=== PATIENT | female | born 1990 | race Caucasian/White ===

== ENCOUNTER 2017-02-24 16:17 | Outpatient (CLI) | payer OTHER ==
[2017-02-24 17:16] LABS: APPEARANCE,URINE SLIGHTLY-CLOUDY; BILIRUBIN,URINE NEGATIVE (NEGATIVE); GLUCOSE, URINE NEGATIVE (NEGATIVE); KETONES,URINE NEGATIVE (NEGATIVE); LEUKOCYTE ESTERASE,URINE LARGE (NEGATIVE); NITRITE,URINE NEGATIVE (NEGATIVE); PROTEIN,URINE NEGATIVE (NEGATIVE); URINE BARBITURATES SCREEN NEGATIVE; URINE METHADONE SCREEN NEGATIVE; URINE OPIATES LOW NEGATIVE; URINE PHENCYCLIDINE SCREEN NEGATIVE; URINE SPECIFIC GRAVITY 1.009; UROBILINOGEN,URINE NEGATIVE mg/dL (<2.0)
[2017-02-24 17:19] LABS: URINE CREATININE 80.4 mg/dL (16-327); URINE PROTEIN 9.9 mg/dL (<12)
[2017-02-24 18:05] LABS: ABSOLUTE LYMPHOCYTES (AUTO) 1.8 10^3/uL (0.5-4.7); ABSOLUTE MONOCYTES (AUTO) 1.1 10^3/uL (0.1-1.4); ABSOLUTE NEUT (AUTO) 6.5 10^3/uL (1.7-8.2); BASOPHILS % (AUTO) 0.4 % (0-2); EOSINOPHILS % (AUTO) 0.5 % (0-6); HEMATOCRIT 33.2 % (36.0-47.0); HEMOGLOBIN 11.4 g/dL (12.0-15.5); LYMPHOCYTES % (AUTO) 18.8 % (13-45); MEAN CORPUSCULAR HEMOGLOBIN 30.8 pg (27.0-33.4); MEAN CORPUSCULAR HGB CONC 34.5 g/dL (32.0-36.0); MEAN CORPUSCULAR VOLUME 89 fl (80-97); RED BLOOD COUNT 3.71 10^6/uL (3.72-5.28); SEGMENTED NEUTROPHILS % (AUTO) 68.3 % (42-78); WHITE BLOOD COUNT 9.5 10^3/uL (4.0-10.5)
[2017-02-24 18:30] LABS: ALANINE AMINOTRANSFERASE 35 U/L (9-52); ALBUMIN 3.4 g/dL (3.5-5.0); ALKALINE PHOSPHATASE 132 U/L (38-126); ANION GAP 11 (5-19); ASPARTATE AMINO TRANSFERASE 23 U/L (14-36); BILIRUBIN,DIRECT 0.3 mg/dL (0.0-0.4); BILIRUBIN,TOTAL 0.4 mg/dL (0.2-1.3); BLOOD UREA NITROGEN 14 mg/dL (7-20); CALCIUM 9.1 mg/dL (8.4-10.2); CARBON DIOXIDE 21 mmol/L (22-30); CHLORIDE 107 mmol/L (98-107); CREATININE RESULT 0.83 mg/dL (0.52-1.25); GLUCOSE 71 mg/dL (75-110); LDH 485 U/L (313-618); POTASSIUM 4.1 mmol/L (3.6-5.0); SODIUM 138.5 mmol/L (137-145); TOTAL PROTEIN 5.7 g/dL (6.3-8.2); URIC ACID 3.9 mg/dL (2.5-6.2)
== END 2017-02-24 19:57 | disposition home or self-care (01) ==
LOC: LC 16:17
PROVIDERS: ATTEND Student in an Organized Health Care Education/Training Program
DX: O13.3 Gestational [pregnancy-induced] hypertension without significant proteinuria, third trimester (principal); Z3A.39 39 weeks gestation of pregnancy
CPT/HCPCS: 36415; 59025; 80053; 80307; 81001; 82570; 83615; 84156; 84550; 85025

== ENCOUNTER 2017-02-26 17:07 | Outpatient (CLI) | payer OTHER ==
[2017-02-26 17:28] LABS: ABSOLUTE EOSINOPHILS # (AUTO) 0.1 10^3/uL (0.0-0.6); ABSOLUTE LYMPHOCYTES (AUTO) 1.5 10^3/uL (0.5-4.7); ABSOLUTE MONOCYTES (AUTO) 0.8 10^3/uL (0.1-1.4); ABSOLUTE NEUT (AUTO) 6.3 10^3/uL (1.7-8.2); BASOPHILS % (AUTO) 0.5 % (0-2); EOSINOPHILS % (AUTO) 0.6 % (0-6); HEMATOCRIT 32.8 % (36.0-47.0); HEMOGLOBIN 11.5 g/dL (12.0-15.5); HGB HCT DIFFERENCE 1.7; LYMPHOCYTES % (AUTO) 16.9 % (13-45); MEAN CORPUSCULAR HEMOGLOBIN 31.5 pg (27.0-33.4); MEAN CORPUSCULAR VOLUME 90 fl (80-97); MONOCYTES % (AUTO) 9.4 % (3-13); RED BLOOD COUNT 3.65 10^6/uL (3.72-5.28); RED CELL DISTRIBUTION WIDTH 13.3 % (11.5-14.0); SEGMENTED NEUTROPHILS % (AUTO) 72.6 % (42-78); WHITE BLOOD COUNT 8.7 10^3/uL (4.0-10.5)
--- NOTE | 2017-02-26 17:52 | Non Stress Test Report ---
Non Stress Test Datetime Report Generated by CPN: 02/26/2017 17:52 DEMOGRAPHIC Test Number: 1 EGA NST: 39.4 EGA NST: 39.2 INDICATION Indication for Study: Ordered by Provider Indication for Study: Ordered by Provider Indication for Study: Ordered by Provider Indication for Study (NST) Other: pih work up Indication for Study (NST) Other: PRE-E W/U VITAL SIGNS Temperature - NST: 98.9 Temperature - NST: 99.6 Pulse - NST: 96 RESP - NST: 18 NBPSYS NST: 128 NBPDIA NST: 83 MONITORING Monitor Explained: Monitor Explained; Test Explained; Patient Verbalized Understanding Monitor Explained: Monitor Explained; Test Explained; Patient Verbalized Understanding Monitor Explained: Monitor Explained; Test Explained; Patient Verbalized Understanding Time on Monitor: 02/26/2017 17:16 Time on Monitor: 02/24/2017 16:30 Time on Monitor: 02/24/2017 16:32 Time off Monitor: 02/26/2017 17:42 Time off Monitor: 02/24/2017 16:56 Time off Monitor: 02/24/2017 17:01 NST Duration: 26 NST Duration: 26 NST Duration: 29 NST INTERVENTIONS NST Interventions: PO Hydration NST Interventions: PO Hydration NST Interventions: PO Hydration; Reposition Patient NST Interventions: PO Hydration; Reposition Patient Physician Notified NST: Kaylin Physician Notified NST: Dr Aguirre Physician Notified NST: DR AGUIRRE REVIEWED STRIP BABY A: [id number] BABY A Movement : Present Movement : Present Movement : Present Contraction Frequency : 9-11 Contraction Frequency : x1 Contraction Frequency : x1 FHR Baseline : 125 FHR Baseline : 125 FHR Baseline : 125 (Annotations: Data stored by N on behalf of user) Accelerations : 15X15 Accelerations : 15X15 Accelerations : 15X15 Decelerations : None Decelerations : None Decelerations : None Variability : Moderate 6-25bpm Variability : Moderate 6-25bpm Variability : Moderate 6-25bpm NST Review: Meets Criteria for Reactive NST NST Review: Meets Criteria for Reactive NST NST Review: Meets Criteria for Reactive NST NST Review and Verified By : Harvinder Watkins RN NST Review and Verified By : Ana Cristina ELAM NST Results: Reactive NST Results: Reactive NST Results: Reactive NST REPORT Report Trigger: Send Report
[2017-02-26 18:11] LABS: URINE CREATININE 50.4 mg/dL (16-327)
== END 2017-02-26 17:48 | disposition home or self-care (01) ==
LOC: LC 17:07
PROVIDERS: ATTEND Obstetrics & Gynecology
PROC: 4A1HXCZ Monitoring of Products of Conception, Cardiac Rate, External Approach (ICD-10-PCS; principal; 2017-02-26)
DX: O14.93 Unspecified pre-eclampsia, third trimester (principal); Z3A.39 39 weeks gestation of pregnancy
CPT/HCPCS: 36415; 59025; 82570; 84156; 85025

== ENCOUNTER 2017-03-03 12:32 | Inpatient (IN) | payer OTHER ==
[2017-03-03 12:56] LABS: APPEARANCE,URINE SLIGHTLY-CLOUDY; BILIRUBIN,URINE NEGATIVE (NEGATIVE); GLUCOSE, URINE NEGATIVE (NEGATIVE); KETONES,URINE NEGATIVE (NEGATIVE); LEUKOCYTE ESTERASE,URINE LARGE (NEGATIVE); NITRITE,URINE NEGATIVE (NEGATIVE); PROTEIN,URINE NEGATIVE (NEGATIVE); URINE SPECIFIC GRAVITY 1.002; UROBILINOGEN,URINE NEGATIVE mg/dL (<2.0)
[2017-03-03 13:16] LABS: URINE CREATININE 28.4 mg/dL (16-327); URINE PROTEIN 16.3 mg/dL (<12)
[2017-03-03 13:34] LABS: URINE BARBITURATES SCREEN NEGATIVE; URINE METHADONE SCREEN NEGATIVE; URINE OPIATES LOW NEGATIVE; URINE PHENCYCLIDINE SCREEN NEGATIVE
[2017-03-03 13:48] LABS: ABSOLUTE LYMPHOCYTES (AUTO) 1.1 10^3/uL (0.5-4.7); ABSOLUTE MONOCYTES (AUTO) 0.6 10^3/uL (0.1-1.4); ABSOLUTE NEUT (AUTO) 6.1 10^3/uL (1.7-8.2); BASOPHILS % (AUTO) 0.2 % (0-2); EOSINOPHILS % (AUTO) 0.2 % (0-6); HEMATOCRIT 34.2 % (36.0-47.0); HEMOGLOBIN 11.9 g/dL (12.0-15.5); HGB HCT DIFFERENCE 1.5; LYMPHOCYTES % (AUTO) 14.1 % (13-45); MEAN CORPUSCULAR HEMOGLOBIN 30.9 pg (27.0-33.4); MEAN CORPUSCULAR HGB CONC 34.8 g/dL (32.0-36.0); MEAN CORPUSCULAR VOLUME 89 fl (80-97); MONOCYTES % (AUTO) 7.4 % (3-13); RED BLOOD COUNT 3.85 10^6/uL (3.72-5.28); SEGMENTED NEUTROPHILS % (AUTO) 78.1 % (42-78); WHITE BLOOD COUNT 7.8 10^3/uL (4.0-10.5)
[2017-03-03 14:17] LABS: ALANINE AMINOTRANSFERASE 35 U/L (9-52); ALBUMIN 3.2 g/dL (3.5-5.0); ALKALINE PHOSPHATASE 154 U/L (38-126); ANION GAP 10 (5-19); ASPARTATE AMINO TRANSFERASE 23 U/L (14-36); BILIRUBIN,DIRECT 0.2 mg/dL (0.0-0.4); BILIRUBIN,TOTAL 0.2 mg/dL (0.2-1.3); BLOOD UREA NITROGEN 7 mg/dL (7-20); CALCIUM 8.8 mg/dL (8.4-10.2); CARBON DIOXIDE 20 mmol/L (22-30); CHLORIDE 108 mmol/L (98-107); CREATININE RESULT 0.72 mg/dL (0.52-1.25); GLUCOSE 93 mg/dL (75-110); LDH 463 U/L (313-618); POTASSIUM 3.5 mmol/L (3.6-5.0); TOTAL PROTEIN 5.3 g/dL (6.3-8.2); URIC ACID 3.6 mg/dL (2.5-6.2)
[2017-03-03] MEDS ORDERED: MISOPROSTOL 0.1 MG TABLET ONE (15:11)
[2017-03-03] MEDS ORDERED: RINGERS SOLUTION,LACTATED 300 ML IV ONE (15:14)
[2017-03-03] MEDS ORDERED: DINOPROSTONE 10 MG VAGINAL INSERT.SR PV PRN (15:14)
[2017-03-03] MEDS ORDERED: MISOPROSTOL 0.1 MG TABLET PV SCH (15:15)
[2017-03-03] MEDS ORDERED: PENICILLIN G-K 5 MILLION UNIT VIAL ONE ×3 (15:20→23:06)
[2017-03-03] MEDS ORDERED: PENICILLIN G POTASSIUM 5,000,000 UNIT in DEXTROSE 5%-WATER 100 ML IV ONE (15:27)
[2017-03-03] MEDS: PENICILLIN G POTASSIUM 2,500,000 UNIT in DEXTROSE 5%-WATER 50 ML IV SCH ×2 (19:26→23:13)
[2017-03-03] MEDS: RINGERS SOLUTION,LACTATED 1,000 ML IV PRN (23:18)
[2017-03-04] MEDS ORDERED: NALBUPHINE HCL INJ 10 MG/1 ML AMPULE INJ ONE (00:25)
[2017-03-04] MEDS ORDERED: NALBUPHINE HCL INJ 10 MG/1 ML AMPULE ONE (00:25)
[2017-03-04 00:27] LABS: ABSOLUTE EOSINOPHILS # (AUTO) 0.1 10^3/uL (0.0-0.6); ABSOLUTE LYMPHOCYTES (AUTO) 2.2 10^3/uL (0.5-4.7); ABSOLUTE NEUT (AUTO) 8.4 10^3/uL (1.7-8.2); BASOPHILS % (AUTO) 0.4 % (0-2); EOSINOPHILS % (AUTO) 0.4 % (0-6); HEMATOCRIT 33.6 % (36.0-47.0); HEMOGLOBIN 11.7 g/dL (12.0-15.5); HGB HCT DIFFERENCE 1.5; LYMPHOCYTES % (AUTO) 18.6 % (13-45); MEAN CORPUSCULAR HEMOGLOBIN 30.8 pg (27.0-33.4); MEAN CORPUSCULAR HGB CONC 34.8 g/dL (32.0-36.0); MEAN CORPUSCULAR VOLUME 89 fl (80-97); MONOCYTES % (AUTO) 8.7 % (3-13); RED CELL DISTRIBUTION WIDTH 13.3 % (11.5-14.0); SEGMENTED NEUTROPHILS % (AUTO) 71.9 % (42-78); WHITE BLOOD COUNT 11.7 10^3/uL (4.0-10.5)
[2017-03-04] MEDS: RINGERS SOLUTION,LACTATED 1,000 ML IV PRN ×2 (00:42→19:22)
[2017-03-04 00:45] LABS: ALANINE AMINOTRANSFERASE 35 U/L (9-52); ALBUMIN 3.1 g/dL (3.5-5.0); ALKALINE PHOSPHATASE 144 U/L (38-126); ANION GAP 7 (5-19); ASPARTATE AMINO TRANSFERASE 22 U/L (14-36); BILIRUBIN,DIRECT 0.3 mg/dL (0.0-0.4); BILIRUBIN,TOTAL 0.4 mg/dL (0.2-1.3); BLOOD UREA NITROGEN 9 mg/dL (7-20); CARBON DIOXIDE 21 mmol/L (22-30); CHLORIDE 108 mmol/L (98-107); CREATININE RESULT 0.72 mg/dL (0.52-1.25); GLUCOSE 82 mg/dL (75-110); LDH 440 U/L (313-618); POTASSIUM 4.2 mmol/L (3.6-5.0); TOTAL PROTEIN 5.4 g/dL (6.3-8.2); URIC ACID 3.2 mg/dL (2.5-6.2)
[2017-03-04] MEDS ORDERED: OXYTOCIN/NORMAL SALINE 20 UNIT/1,000 ML RTUINJ IV PRN ×2 (00:45→19:58)
--- NOTE | 2017-03-04 01:24 | L&D Progress Notes ---
PROGRESS NOTES Datetime Report Generated by CPN: 03/04/2017 01:24 PROGRESS NOTE Impression: Normal Progression of Labor; Reassuring Heart Rate Procedures: Sterile Vag Exam Plan: Continue Present Management; Induction; Cervical Ripening Informed Consent Obtained: Vaginal Delivery; Induction of Labor; Risks, Benefits and Alternatives Discussed Vital Signs : Reviewed; Within Normal Limits Comment: Now 1cm/50/-3 after cytotec per vagina times 2. Cooks catheter placed. Pitocin initiated. Continue IOL for PreE. Labs stable and platlets stable. Reassuring FWB. Anticipate . VAGINAL EXAM Dilatation: 1 Dilatation: 0 Effacement: 50 Effacement: 0 Station: -3 Station: -2 Contractions: irreg Contractions: rare MEMBRANES Membranes: Intact FETUS A FHR - Baseline: 125 Monitoring: External US Variability: Moderate 6-25bpm Accelerations: 15X15 Decelerations: None FHR Category: Category I Presentation: Vertex SIGNATURE SIGNATURE: [id number];[id number] SIGNATURE: [id number] Signature: with User ID: [email or web address]
[2017-03-04] MEDS ORDERED: OXYTOCIN/NORMAL SALINE 0 UNIT/0 ML RTUINJ ONE (01:30)
[2017-03-04] MEDS ORDERED: FENTANYL/BUPIVACAINE/NS/PF 0 MCG/0 ML RTUINJ EPI ONE (01:54)
[2017-03-04] MEDS ORDERED: BUPIVACAINE HCL 0.25 % INJ/PF (2.5 MG/1 ML) 30 ML VIAL ONE ×2 (01:54→19:42)
[2017-03-04] MEDS ORDERED: EPHEDRINE SULFATE INJ 50 MG/1 ML AMPULE ONE ×2 (01:54→20:06)
[2017-03-04] MEDS ORDERED: PENICILLIN G-K 5 MILLION UNIT VIAL ONE ×5 (03:40→19:13)
[2017-03-04] MEDS ORDERED: MISOPROSTOL 0.2 MG TABLET ONE (03:41)
[2017-03-04] MEDS ORDERED: OXYTOCIN/NORMAL SALINE 20 UNIT/1,000 ML RTUINJ ONE ×2 (03:41→20:06)
[2017-03-04] MEDS ORDERED: LIDOCAINE 1% INJ-PF (10 MG/ML) 30 ML SDV ONE (03:41)
[2017-03-04] MEDS: PENICILLIN G POTASSIUM 2,500,000 UNIT in DEXTROSE 5%-WATER 50 ML IV SCH ×5 (03:56→19:21)
--- NOTE | 2017-03-04 09:58 | L&D Progress Notes ---
PROGRESS NOTES Datetime Report Generated by CPN: 03/04/2017 09:58 PROGRESS NOTE Impression: Normal Progression of Labor Impression Other: IOL for preeclampsia at term Procedures: Artificial ROM Procedures- Other: AROM for moderate amount clear fluid Plan: Continue Present Management Vital Signs : Reviewed; Within Normal Limits Comment: IOL for preeclampsia without severe features. currently denies SMITH/visual changes/RUQ pain. BP normal to mild range. pitocin at 10mu/min. contractions adequate. cook catheter in vagina, removed. AROM for clear fluid. continue pitocin IOL, anticipate VAGINAL EXAM Dilatation: 5 Effacement: 80 Station: -2 Contractions: Q2-3.5 mins MEMBRANES Membranes: Ruptured FETUS A FHR - Baseline: 140 Monitoring: External US Variability: Moderate 6-25bpm Accelerations: 15X15 Decelerations: None FHR Category: Category I FHR Comments: vtx Estimated Weight (gm): 3700 FETUS C SIGNATURE: [id number];[id number] Assignment: Halle Salgado MD Signature: with User ID: [email or web address] : with User ID: [email or web address]
[2017-03-04] MEDS ORDERED: FENTANYL/BUPIVACAINE/NS/PF 200 MCG/100 ML RTUINJ EPI ONE ×2 (11:06→19:42)
[2017-03-04] MEDS ORDERED: ACETAMINOPHEN 325 MG TABLET ONE (17:46)
[2017-03-04] MEDS ORDERED: LIDOCAINE 2% INJ-PF (20 MG/ML) 10 ML AMPUL ONE (19:47)
[2017-03-04] MEDS ORDERED: CITRIC ACID/SODIUM CITRATE ORAL SOLN 15 ML UDCUP ONE (19:51)
[2017-03-04] MEDS ORDERED: CEFAZOLIN 2 GM/D5W RTU 2 GM/50 ML RTUPB IV ONE (19:55)
[2017-03-04] MEDS ORDERED: ACETAMINOPHEN 325 MG TABLET PO PRN (19:58)
[2017-03-04] MEDS ORDERED: ACETAMINOPHEN 100 ML IV PRN (19:58)
[2017-03-04] MEDS ORDERED: HYDROMORPHONE HCL INJ/PF 2 MG/ML AMPULE IV PRN (19:58)
[2017-03-04] MEDS ORDERED: OXYCODONE-ACETAMINOPHEN 5-325 MG TABLET PO PRN ×3 (19:58→20:12)
[2017-03-04] MEDS ORDERED: DIPH/PERTUSS(ACELL)/TETANUS VAC/PF 0.5 ML SYR (>=10YO) IM PRN (19:58)
[2017-03-04] MEDS ORDERED: MEASLES,MUMPS&RUBELLA VACC/PF 0.5 ML VIAL SUBCUT PRN (19:58)
[2017-03-04] MEDS ORDERED: PROMETHAZINE HCL INJ 25 MG/1 ML VIAL IV PRN ×3 (19:58→20:12)
[2017-03-04] MEDS ORDERED: OXYTOCIN 10 UNIT/ML VIAL ONE (20:05)
[2017-03-04] MEDS ORDERED: FENTANYL CITRATE INJ/PF 100 MCG/2 ML AMPUL ONE ×3 (20:05→23:07)
[2017-03-04] MEDS ORDERED: MIDAZOLAM 2 MG/2 ML INJ ONE (20:06)
[2017-03-04] MEDS ORDERED: ONDANSETRON HCL INJ/PF 4 MG/2 ML SDV ONE (20:06)
[2017-03-04] MEDS ORDERED: DIPHENHYDRAMINE HCL 50 MG/ML VIAL IV PRN (20:12)
[2017-03-04] MEDS ORDERED: MORPHINE SULFATE 10 MG/ML INJ IV PRN (20:12)
[2017-03-04] MEDS ORDERED: FENTANYL CITRATE INJ/PF 100 MCG/2 ML AMPUL IV PRN ×3 (20:12)
[2017-03-04] MEDS ORDERED: MEPERIDINE HCL/PF INJ 25 MG/1 ML DISP.SYRIN IV PRN (20:12)
[2017-03-04] MEDS ORDERED: KETOROLAC TROMETHAMINE INJ/PF 30 MG/1 ML SDV IV ONE (20:30)
--- NOTE | 2017-03-04 21:30 | Operative Report ---
Operative Report DATE OF SURGERY: 03/04/17 PREOPERATIVE DIAGNOSIS: Cephalopelvic disproportion POSTOPERATIVE DIAGNOSIS: Same OPERATION: Primary via low transverse uterine incision SURGEON: DEMAR JOHNSON ANESTHESIA: Epidural TISSUE REMOVED OR ALTERED: Placenta COMPLICATIONS: None ESTIMATED BLOOD LOSS: 500 cc INTRAOPERATIVE FINDINGS: Normal uterus tubes ovaries viable male Apgars 8 and 9 weight 8 lbs. 3 oz. baby was STACIE. Very molded head and cone shaped. PROCEDURE: Patient was taken to the OR and placed in supine position after her spinal anesthesia. She is prepared and draped in sterile fashion. Moran was placed for drainage of the bladder. Low transverse incision was made and carried down the level of the fascia. The fascial incision was made with knife and extended bilaterally with curved Levy scissors. The fascia was off the rectus muscles using sharp and blunt dissection. The rectus muscles are in the midline. The peritoneum was entered without incident. Bladder blade was placed in uterine segment was identified. A low transverse incision was made creating a bladder flap. Bladder blade was placed low transverse uterine incision was made with the csafe knife and extended with fingertips. The baby was delivered with some fundal pressure. Mouth and nose were suctioned free. The cord is doubly clamped and cut. Baby is passed off to the ghost writer in attendance. The placenta was manually extracted with trailing membranes. The uterus was externalized wrapped in a moist lap sponge. Uterine contents wiped free. Uterus was closed with a running locking layer of 0 chromic suture using the second layer to imbricate the first completing a double layer closure of the uterus. The serosa was closed with a running 2-0 chromic stitch. The pelvis was irrigated and suctioned free of fluid the uterus was replaced in the abdomen. The abdominal wall peritoneum was closed with running 2-0 chromic stitch. Fascia was closed with a running 0 Vicryl in 2 segments. Lainey's layer was brought together with 0 plain gut stitch and the skin was closed with running subcuticular 4-0 undyed Vicryl stitch. The wound was dressed mother and baby did well.
[2017-03-04] MEDS ORDERED: MEPERIDINE HCL/PF INJ 25 MG/1 ML DISP.SYRIN ONE (21:36)
[2017-03-04] MEDS ORDERED: ACETAMINOPHEN 100 ML IV ONE (22:00)
[2017-03-04] MEDS ORDERED: KETOROLAC TROMETHAMINE INJ/PF 30 MG/1 ML SDV ONE (22:47)
--- NOTE | 2017-03-04 23:35 | Delivery Summary ---
Del Sum A-C Datetime Report Generated by CPN: 03/04/2017 23:35 DELIVERY PERSONNEL DELIVERY PERSONNEL: [id number] Delivery Doctor:: Halle Salgado MD Anesthesiologist:: Levar Ivy MD LAP REGULATOR:: Boris Ha CRNA Labor and Delivery Nurse:: Amol Mas RN Otter Trawler Boatswain/CASHIER ASSOCIATE: ST Zeyad Otter Trawler Boatswain/CASHIER ASSOCIATE: Patricia Hutson, EYELET PUNCH OPERATOR Additional Personnel: : Arely Leblanc CNA MATERNAL INFORMATION Delivery Anesthesia: Epidural Medications After Delivery: Pitocin Bolus-Please Comment; Pitocin Drip 20 Units/1000ml NSS Maternal Complications: None LABOR SUMMARY EDC: 03/01/2017 00:00 No. Babies in Womb: 1 Attempted: No Labor Anesthesia: Epidural LABOR INFORMATION Onset of Labor: 03/04/2017 09:47 Cervical Ripening Agents: Cytotec @ (Annotations: 0.25mcg per vag) Oxytocin: Induction Group B Beta Strep: Positive Antibiotics # of Doses: 9 Antibiotics Time of Last Dose: 2018 Name of Antibiotic Given: Ancef MEMBRANES Membranes Rupture Method: Artificial Rupture of Membranes: 03/04/2017 20:46 Length of Rupture (hr): 0.02 Amniotic Fluid Color: Clear Amniotic Fluid Amount: Small Amniotic Fluid Odor: Normal STAGES OF LABOR Stage 3 hr: 0 Stage 3 min: 1 Total Time in Labor hr: 11 Total Time in Labor min: 1 VAGINAL DELIVERY Episiotomy: None Laceration #1: None Laceration Extension #1: N/A Laceration Repair: Not Applicable Sharps Count Correct: N/A CSECTION DELIVERY Primary Indication: Arrest of Descent Secondary Indication: Secondary Arrest of Dilatation CSection Urgency: Non-Scheduled CSection Incidence: Primary Labor: Labor Elective: Nonelective CSection Incision: Lower Uterine Transverse BABY A INFORMATION Delivery Date/Time: 03/04/2017 20:47 Method of Delivery: Born in Route : No : N/A Forceps: N/A Vacuum Extraction: N/A Shoulder Dystocia : No PRESENTATION/POSITION BABY A Presentation: Cephalic Cephalic Presentation: Vertex Vertex Position: Left Occipital Anterior Breech Presentation: N/A PLACENTA INFORMATION BABY A Placenta Delivery Time : 03/04/2017 20:48 Placenta Method of Delivery: Manual Removal Placenta Status: Delivered SCORES BABY A Heart Rate 1 min: >100 bpm Resp Effort 1 min: Slow, Irregular Reflex Irritability 1 min: Cough or Sneeze or Pulls Away Muscle Tone 1 min: Active Motion Color 1 min: Body [place], Extremities Blue Resuscitation Effort 1 min: Tactile Stimulation SCORE 1 MIN: 8 Heart Rate 5 min: >100 bpm Resp Effort 5 min: Good Cry Reflex Irritability 5 min: Cough or Sneeze or Pulls Away Muscle Tone 5 min: Active Motion Color 5 min: Body [place], Extremities Blue Resuscitation Effort 5 min: Tactile Stimulation SCORE 5 MIN: 9 INFORMATION BABY A Gestational Age at Delivery: 40.3 Gestational Status: Full Term- 39- 40.6 Weeks Outcome : Liveborn Condition : Stable Infant Sex: Male IDENTIFICATION BABY A Verification Date/Time: 03/04/2017 20:59 ID Band Number: [id number] Mother's Name Verified: Yes Infant RN Verifying : Chela Rodriguez RN Additional Verifying Personnel: Arely Leblanc WEIGHT/LENGTH BABY A Infant Birthweight (gm): 3713 Infant Weight (lb): 8 Weight (oz): 3 Infant Length (in): 21.00 Length (cm): 53.34 CORD INFORMATION BABY A No. Cord Vessels: 3 Nuchal Cord : N/A Cord Blood Taken: Yes-For Eval (Mom's Blood Type - or O+) Suction: Mouth; Nose ASSESSMENT BABY A Complications: None Physical Findings at Delivery: Within Normal Limits Infant Respirations: Appears Normal Material Controller/ALS Called : Yes Care By: Kelsey RN Transferred To: [facility] BABY B INFORMATION : N/A SIGNATURES : I was personally available for consultation and serving as supervising physician for the MLP.
--- NOTE | 2017-03-04 23:43 | Admission Physical ---
Datetime Report Generated by CPN: 03/04/2017 23:43 CURRENT ADMISSION Hx Assessment: The History has been Reviewed and is Current Chief Complaint: Scheduled Induction of Labor Indication for Induction: PreEclampsia Indication for Induction: Term, Intrauterine Admit Plan: Admit to Unit; Initiate Labor Induction Protocol ALLERGIES Medication Allergies: No Medication Allergies: No Known Allergies (02/26/2017) Medication Allergies: No Known Allergies (02/24/2017) Medication Allergies: No Known Allergies (01/06/2016) Latex: No Latex Allergies Food Allergies: no Environmental Allergies: seasonal OBSTETRICAL HISTORY EDC: 03/01/2017 00:00 : 1 Para: 0 Term: 0 : 0 SAB: 0 IAB: 0 Ectopic: 0 Livin Cesareans: 0 VBACs: 0 Multiple Births: 0 Gestational Diabetes: No Rh Sensitization: No Incompetent Cervix: No ARTIS: No Infertility: No ART Treatment: No Uterine Anomaly: No IUGR: No Hx Previous C/S: No Macrosomia: No Hx Loss/Stillborn: No PIH: Yes Hx : No Placenta Previa/Abruption: No Depression/PP Depression: No PTL/PROM: No Post Hemorrhage: No Current Procedures: Ultrasound Obstetrical History Comments: G1: current SEE RECORDS Alcohol: No Marijuana : No Cocaine: No Other Illicit Drugs: No Cigarettes: Never Smoker. 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 Heart Disease: No Hosp/Surgery: Yes Autoimmune Disorder: No Anesthetic Complications: No Kidney Disease: No Abnormal Pap Smear: No Neuro/Epilepsy: No Psychiatric Disorders: No Other Medical Diseases: No Hepatitis/Liver Disease: No Significant Family History: No Varicosities/Phlebitis: No Trauma/Violence : No Thyroid Dysfunction: No Medical History Comments: tonsillectomy INFECTIOUS HISTORY Gonorrhea: No Genital Herpes: No Chlamydia: No Tuberculosis: No Syphilis: No Hepatitis: No HIV/AIDS Exposure: No Rash or Viral Illness: No HPV: No PHYSICAL EXAM General: Normal HEENT: Deferred Neurologic: Normal Thyroid: Deferred Heart: Normal Lungs: Normal Breast: Deferred Back: Normal Abdomen: Normal Genitourinary Exam: Normal Extremities: Normal DTRs: Normal Pelvic Type: Adequate Physical Exam Comments: Bilateral lower extremities +1 edema +2 reflexes Pelvis unproven-adequate for trial of labor Vital Signs: Reviewed Details Vital Signs: normal bps except for last one VAGINAL EXAM Dilatation: 5 Dilatation: 5 Dilatation: 1 Dilatation: 0 Effacement: 80 Effacement: 80 Effacement: 50 Effacement: 0 Station: -2 Station: -2 Station: -3 Station: -2 Contraction Comments: q1-3.5 mins Contraction Comments: Q2-3.5 mins Contraction Comments: irreg Contraction Comments: rare MEMBRANES Membranes: Ruptured Membranes: Ruptured Membranes: Intact Amniotic Fluid Color: Clear FETUS A EGA: 40.2 Monitoring: External US FHR Category: Category I Estimated Weight (gm): 3700 Presentation: Vertex Admit Comment: 26yo @ 40w2d into L_D for IOL for pre-eclampsia. No significant medical history and uncomplicated until last week when she had elevated BPs in office and the diagnosed with pre-e. Pt. reports +FM today, denies LOF/bleeding/RUQ pain/visual disturbances/headache. also complicated by + GBS (1st dose of PCN given on admission) and Rh neg (A neg). Platelets down to 115 today from 120 last week and creatinine 0.7 as well as protein/creatinine ratio of 0.6 today from .[address] Ireland in unit and recommended plan as stated above. cytotec placed by RN. PLANS FOR LABOR AND DELIVERY Labor and Delivery: None Pain Management: Epidural Feeding Preference: Breast Benefit of Breast Feed Discussed: Yes Circumcision: No INFORMED CONSENT Informed Consent Obtained: Vaginal Delivery; Induction of Labor; Risks, Benefits and Alternatives Discussed Assignment: Destini Ireland MD Signature: with User ID: Cristian : with User ID: [email or web address]
--- NOTE | 2017-03-05 00:20 | PDOC DELIVERY SUMMARY ---
Delivery Summary - Maternal Hx : I Hx Para: 0 SYL: 03/01/17 Gestational Age: 40 Risk Factors: Pre-Eclampsia Risk Factors/Complications Other:: thrombocytopenia Ruptured Membranes: AROM Time of Rupture: 20:45 Fluids: Clear - Delivery Labor: Induction Presentation: Vertex Heart Rate Monitoring: Externally Uterine Contraction Monitoring: Internal Pattern Other: cat1 Support Person Present: Yes Location: OR : Emergency Placenta Description: delivered Number of Vessels (Cord): 3 Nuchal Cord: Yes Delivery of Placenta Date: 03/05/17 - Medications Type of Anesthesia:: Epidural - Infant Assess and Care Baby 1 Male Delivery of Infant Date: 03/05/17 Delivery of Infant Time: 20:45 at 1 minute: 8 at 5 minutes: 9 Preprinted Number On Band: [id number] Skin to Skin: No Mode of Transport: Carried Delivery Weight: 3,713 Infant Delivery Length: 21 in - Delivery Personnel Nursery RN: PORTIA BURNHAM
[2017-03-05] MEDS: OXYCODONE-ACETAMINOPHEN 5-325 MG TABLET PO PRN ×5 (00:31→22:23)
[2017-03-05] MEDS ORDERED: RINGERS SOLUTION,LACTATED 500 ML IV ONE (04:15)
[2017-03-05] MEDS: RINGERS SOLUTION,LACTATED 1,000 ML IV PRN ×2 (04:16→05:06)
[2017-03-05] MEDS: KETOROLAC TROMETHAMINE INJ/PF 30 MG/1 ML SDV IV SCH ×2 (05:16→13:21)
[2017-03-05 08:08] LABS: HGB HCT DIFFERENCE 0.9; MEAN CORPUSCULAR HEMOGLOBIN 31.2 pg (27.0-33.4); MEAN CORPUSCULAR HGB CONC 34.8 g/dL (32.0-36.0); MEAN CORPUSCULAR VOLUME 90 fl (80-97); RED BLOOD COUNT 2.67 10^6/uL (3.72-5.28); RED CELL DISTRIBUTION WIDTH 13.3 % (11.5-14.0); WHITE BLOOD COUNT 10.4 10^3/uL (4.0-10.5)
[2017-03-05 08:50] LABS: HEMOGLOBIN 8.3 g/dL (12.0-15.5)
[2017-03-05] MEDS: PRENATAL VITAMIN W DHA CAPSULE PO SCH (09:14)
[2017-03-05] MEDS: DOCUSATE SODIUM 100 MG CAPSULE PO SCH ×2 (09:14→17:50)
--- NOTE | 2017-03-05 09:36 | PDOC PROGRESS REPORT ---
Subjective Progress Note for:: 03/05/17 Subjective:: pt has no complaints breast feeding and passing gas Reason For Visit: PREE AT 40+2EGA, GBS POS Physical Exam - Physical Exam Vital Signs: Temp Pulse Resp BP Pulse Ox 98.4 F 79 18 127/79 H 100 03/05/17 08:22 03/05/17 08:22 03/05/17 08:22 03/05/17 08:22 03/05/17 08:22 Intake & Output 03/04/17 03/05/17 03/06/17 06:59 06:59 06:59 Intake Total 2000 Output Total 650 Balance 1350 Weight 86.05 kg General appearance: PRESENT: no acute distress, well-developed, well-nourished Respiratory exam: PRESENT: clear to auscultation elaina Cardiovascular exam: PRESENT: RRR. ABSENT: diastolic murmur, rubs, systolic murmur Extremities exam: PRESENT: full ROM. ABSENT: calf tenderness, clubbing, pedal edema Result Laboratory Results: 03/05/17 07:15 03/04/17 00:12 03/04/17 03/05/17 13:17 07:15 WBC 10.4 RBC 2.67 L Hgb 8.3 L D Hct 24.0 L MCV 90 MCH 31.2 MCHC 34.8 RDW 13.3 Plt Count 91 L Blood Type A NEGATIVE Antibody Screen POSITIVE Assessment & Plan - Plan Summary Plan Summary: routine PP care d/c in AM
[2017-03-05] MEDS: SIMETHICONE 80 MG TAB.CHEW PO PRN (13:30)
[2017-03-05] MEDS: IBUPROFEN 800 MG TABLET PO SCH (17:51)
[2017-03-06] MEDS: IBUPROFEN 800 MG TABLET PO SCH ×3 (00:26→13:05)
[2017-03-06] MEDS: OXYCODONE-ACETAMINOPHEN 5-325 MG TABLET PO PRN ×3 (06:09→15:31)
[2017-03-06] MEDS: PRENATAL VITAMIN W DHA CAPSULE PO SCH (09:48)
[2017-03-06] MEDS: DOCUSATE SODIUM 100 MG CAPSULE PO SCH (09:48)
[2017-03-06] MEDS: SIMETHICONE 80 MG TAB.CHEW PO PRN (10:16)
[2017-03-06 11:12] LABS: ABSOLUTE LYMPHOCYTES (AUTO) 0.9 10^3/uL (0.5-4.7); ABSOLUTE MONOCYTES (AUTO) 0.4 10^3/uL (0.1-1.4); ABSOLUTE NEUT (AUTO) 6.9 10^3/uL (1.7-8.2); BASOPHILS % (AUTO) 0.3 % (0-2); EOSINOPHILS % (AUTO) 0.5 % (0-6); HGB HCT DIFFERENCE 0.7; LYMPHOCYTES % (AUTO) 10.8 % (13-45); MEAN CORPUSCULAR HEMOGLOBIN 30.7 pg (27.0-33.4); MEAN CORPUSCULAR HGB CONC 34.5 g/dL (32.0-36.0); MEAN CORPUSCULAR VOLUME 89 fl (80-97); MONOCYTES % (AUTO) 5.1 % (3-13); RED BLOOD COUNT 2.58 10^6/uL (3.72-5.28); RED CELL DISTRIBUTION WIDTH 13.3 % (11.5-14.0); SEGMENTED NEUTROPHILS % (AUTO) 83.3 % (42-78); WHITE BLOOD COUNT 8.3 10^3/uL (4.0-10.5)
[2017-03-06 11:15] LABS: HEMOGLOBIN 7.9 g/dL (12.0-15.5)
--- NOTE | 2017-03-06 11:27 | PDOC PROGRESS REPORT ---
Subjective-OB Subjective: Post Delivery Day: 26 year old. Denies any needs at this time. Ready for discharge later today. Physical Exam (OB) Vital Signs: Temp Pulse Resp BP Pulse Ox 98.6 F 96 16 124/72 99 03/06/17 08:18 03/06/17 08:18 03/06/17 08:18 03/06/17 08:18 03/06/17 08:18 Intake & Output 03/05/17 03/06/17 03/07/17 06:59 06:59 06:59 Intake Total 1999 1676 Output Total 650 1650 Balance 1350 27 - PIH/Pre-Eclampsia DTR's: 2 + Clonus: Negative Headache: Absent Epigastric Pain: No Visual Changes: No - Dressing Removed: Yes Incision: Open, Well Approximated Closure Type: Surgical Glue - Lochia Lochia Amount: Scant < 10 ml Lochia Color: Rubra/Red - Abdomen Description: Tender, Soft, Flat Hernia Present: No Bowel Sounds: Normoactive Flatus Presence: Present Stool: No Fundal Description: Firm, Midline Fundal Height: u/u - u/2 Objective-Diagnostic Laboratory: 03/06/17 10:56 03/04/17 00:12 03/05/17 03/06/17 07:15 10:56 WBC 8.3 RBC 2.58 L Hgb 7.9 L Hct 23.0 L MCV 89 MCH 30.7 MCHC 34.5 RDW 13.3 Plt Count 106 L Seg Neutrophils % 83.3 H Lymphocytes % 10.8 L Monocytes % 5.1 Eosinophils % 0.5 Basophils % 0.3 Absolute Neutrophils 6.9 Absolute Lymphocytes 0.9 Absolute Monocytes 0.4 Absolute Eosinophils 0.0 Absolute Basophils 0.0 Blood Type A NEGATIVE
--- NOTE | 2017-03-06 11:35 | PDOC DISCHARGE SUMMARY ---
Final Diagnosis Discharge Date: 03/06/17 - Final Diagnosis (1) Arrest of descent, delivered, current hospitalization Is this a current diagnosis for this admission?: Yes (2) Delivery by emergency caesarean section Is this a current diagnosis for this admission?: Yes (3) Is this a current diagnosis for this admission?: Yes (4) Encounter for induction of labor Is this a current diagnosis for this admission?: Yes (5) Pre-eclampsia in third trimester Is this a current diagnosis for this admission?: Yes Discharge Data - Discharge Medication Home Medications: Vit/Iron Fum/Folic AC [ Tablet] 1 tab PO DAILY 02/24/17 Docusate Sodium [Colace 100 mg Capsule] 100 mg PO BID #30 capsule 03/06/17 Ferrous Sulfate 325 mg PO BID #60 tablet. 03/06/17 Ibuprofen [Motrin 800 mg Tablet] 800 mg PO Q6 #30 tablet 03/06/17 Oxycodone HCl/Acetaminophen [Percocet 5-325 mg Tablet] 1 tab PO Q4HP PRN #20 tablet 03/06/17 Gestational Age: 40.3 wks Reason(s) for Admission: Induction of Labor, PIH Procedures: Ultrasound Intrapartum Procedure(s): : Low Cervical, Transverse - Data Baby 1 Male at 1 minute: 8 at 5 minutes: 9 Weight: 3.714 kg Home with Mother: Yes Complications: No - Diagnosis Test Laboratory: Temp Pulse Resp BP Pulse Ox 98.6 F 96 16 124/72 99 03/06/17 08:18 03/06/17 08:18 03/06/17 08:18 03/06/17 08:18 03/06/17 08:18 03/03/17 03/03/17 03/04/17 12:41 13:17 00:12 RBC 3.85 3.80 Hgb 11.9 L 11.7 L Hct 34.2 L 33.6 L Urine Opiates Screen NEGATIVE 03/05/17 03/06/17 07:15 10:56 RBC 2.67 L 2.58 L Hgb 8.3 L D 7.9 L Hct 24.0 L 23.0 L Urine Opiates Screen - Discharge information/Instructions Discharge Activity: Activity As Tolerated, Balance Activity w/Rest, No Lifting Over 10 Pounds, Pelvic Rest, Slowly Increase Activity, No tub bath Discharge Diet: Regular Disposition: HOME, SELF-CARE Follow up with: [facility] in: 1, Weeks
[2017-03-06 13:56] VITALS: BP 128/74
== END 2017-03-06 16:12 | disposition home or self-care (01) | DRG 765 ==
LOC: LC 12:32 → LR 14:21 → 2S 03-04 23:42
PROVIDERS: ADMIT Obstetrics & Gynecology; ATTEND Obstetrics & Gynecology
PROC: 10D00Z1 Extraction of Products of Conception, Low, Open Approach (ICD-10-PCS; principal; 2017-03-04)
PROC: 3E0234Z Introduction of Serum, Toxoid and Vaccine into Muscle, Percutaneous Approach (ICD-10-PCS; 2017-03-05)
DX: O14.94 Unspecified pre-eclampsia, complicating childbirth (principal); O36.0930 Maternal care for other rhesus isoimmunization, third trimester, not applicable or unspecified; O99.12 Other diseases of the blood and blood-forming organs and certain disorders involving the immune mechanism complicating childbirth; O13.4 Gestational [pregnancy-induced] hypertension without significant proteinuria, complicating childbirth; O65.9 Obstructed labor due to maternal pelvic abnormality, unspecified; D69.6 Thrombocytopenia, unspecified; O99.824 Streptococcus B carrier state complicating childbirth; O62.1 Secondary uterine inertia; Z3A.40 40 weeks gestation of pregnancy; Z37.0 Single live birth
CPT/HCPCS: 1961; 36415; 80053; 80307; 81001; 82570; 83615; 84156; 84550; 85025; 85027; 85461; 86850; 86870; 86900; 86901; 94760; 94799; C1726; J0131; J0690; J1885; J2175; J2250; J2300; J2405; J2540; J2590; J2790; J3010; J3490; J7120